=== PATIENT | male | born 1945 | race Caucasian/White ===

== ENCOUNTER 2017-09-23 14:54 | Emergency (ER) | payer MEDICARE, SELFPAY ==
[2017-09-23 14:55] VITALS: BP 155/94; PULSE 93; RESP 16; TEMP 36.5; O2SAT 98; BMI 26.2
--- NOTE | 2017-09-23 15:35 | CT_ITS ---
STUDY: CT ABDOMEN AND PELVIS WITHOUT CONTRAST REASON FOR EXAM: Male, 72 years old. Left upper quadrant pain, nausea, vomiting RADIATION DOSAGE (If Supplied By Facility): CTDIvol = ( 9.37 ) mGy, DLP = ( 475.36 ) mGycm TECHNIQUE: Transaxial images were obtained from the dome of the diaphragm to the symphysis pubis without oral contrast, and without intravenous contrast. Sagittal and coronal images were reconstructed. Individualized dose optimization techniques were used for this CT. COMPARISON: Prior study of 03/01/2013 FINDINGS: The study is limited, being performed without oral and intravenous contrast. The visualized lung bases are unremarkable. The visualized portions of the heart are within normal limits. Normal liver. Normal gallbladder and extrahepatic biliary system. Normal spleen. Normal pancreas. Normal bilateral adrenal glands. There is a nonobstructing 2 mm calculus of the lower pole of the right kidney. There is a mild left hydronephrosis and hydroureter. There is an obstructing left intraureteral calculus several CM proximal to the UVJ measuring 4 mm. There is a nonobstructing 3 mm calculus in the upper pole of the left kidney. There is left perinephric stranding. Normal visualized stomach. Normal small intestine. There is a large amount of stool in the rectal vault. The appendix is visualized and appears normal. There are calcified plaques of the abdominal aorta and common iliac arteries. Normal inferior vena cava. Normal retroperitoneum. Normal urinary bladder. The prostate is enlarged, measuring 5.8 x 4.3 x 6.5 cm. There are status post anterior abdominal wall hernia repair changes. There are diffuse degenerative changes of the visualized thoracolumbar spine. There is a grade 1 anterolisthesis of L4 relative to L3 and L5. CT/Abdomen/Pelvis without Cont IMPRESSION: 1. There is an obstructing 4 mm left intraureteral calculus several CM proximal to the UVJ with mild proximal left hydronephrosis and hydroureter. Left perinephric stranding is seen. 2. There are additional nonobstructing calculi of the left and right kidneys. 3. Enlarged prostate. 4. Degenerative changes of the visualized thoracolumbar spine. Grade 1 anterolisthesis of L4 relative to L3 and L5. Left upper quadrant pain, nausea and vomiting Electronically Signed: Wilber Torres MD at 17:40 EDT , Service support ,
--- NOTE | 2017-09-23 15:37 | ED.VISSUMM ---
- ER Visit Summary Date of Service: 09/23/17 Chief Complaint: Left flank pain History of Present Illness: The patient is a 72 M with Pap smear history of kidney stones. He is also had prior back surgery for spinal stenosis. States around 1 AM last night he got left flank pain and felt similar to his prior kidney stones. He has not had one for years. He has always been able to pass them in the past. States he was unable to get to sleep with the pain. He took a hydrocodone around 6 AM. He states that it is worst the pain was a 5 and currently is a 2 out of 10. He had dry heaves. Currently is not nauseated. He denies any dysuria. He denies any melena. He denies any fever. He denies any trauma. Physical Examination: Well appearing older male. Vital signs are stable and afebrile. He does not look septic or toxic. He is in no acute distress. Currently he states he does not need anything for pain. HEENT exam unremarkable. Lungs clear to auscultation bilaterally. Heart regular rate and rhythm no murmur. Abdomen is soft and nondistended. Normal bowel sounds no peritoneal signs. There is absolutely no reproducible abdominal tenderness. Both the right upper and right lower quadrants are unremarkable. No hernias or masses. No pulsatile mass. He is moving all 4 extremities. Neurovascular intact. Without edema. Back exam is nontender. Neurologically he is awake and alert without focal motor deficits. Test Results: CT flank without contrast shows left intraureteral calculi of 4 mm proximal to the left UVJ. With hydroureter and hydronephrosis. There is also some left renal stranding. He also has a large prostate. The CAT scan results are consistent with blood in his urine and urinalysis and his history and exam. Emergency Department Course and Treatment: Clinically the patient has a left kidney stone. Labs will be done. He does not want anything for pain or nausea at this time. Treatment Plan: Is doing well. He took another one of his hydrocodone as well in the ER. He did not want anything stronger at this time. I went over all test results with he and his significant other. He is comfortable being discharged to home. He has plenty of hydrocodone at home for pain. He will also be placed on Flomax. Given a urine strainer. He knows to return if intractable pain, fever, vomiting or feeling worse. Disposition: Discharge Impression: Left flank pain secondary to 4 mm left intraureteral kidney stone above the left UVJ. This note was generated with [employer] dictation software. It may contain incorrect words, spelling, and punctuation that were not noted in review of the chart prior to signing ED Disposition - Plan for ED Patient: Chief Complaint: Abd Pain Referrals: Lidia Costello MD [Primary Care Provider] -
[2017-09-23 16:58] VITALS: RESP 15; O2SAT 97
--- NOTE | 2017-09-23 16:59 | ED.RN ---
WITH PERMISSION FROM DR. NAJERA PT TAKING A DOSE OF HIS HOME MEDICATION.
[2017-09-23 17:02] LABS: Bacteria 0 SEEN /hpf (None Seen); Mucous, Urine 0 SEEN /hpf (<or=2+); Squamous Epithelial Cells - UA 0 SEEN /hpf (0-5)
[2017-09-23 17:04] LABS: Color, Urine Yellow (Yellow); Glucose, Dipstick Normal (Normal); Ketone-Dipstick Negative (Negative); Leukocyte Esterase-Dipstick 25 /ul (Negative); Nitrite-Dipstick Negative (Negative); Occult Blood-Urine 250 /ul (Negative); Protein-Dipstick 15 mg/dl (Negative); Specific Gravity, Urine 1.015 (1.002-1.030); Urine Bilirubin Dipstick Negative (Negative); Urine Clarity Sl. Cloudy (Clear); Urine Urobilinogen Normal (Normal); Urine pH 6.5 (5.0 - 8.0)
[2017-09-23 17:14] LABS: Red Blood Cells-Urine 10-25 SEEN /hpf (0-5); White Blood Cells 0-5 SEEN /hpf (0-5)
--- NOTE | 2017-09-23 19:30 | ED.DEP ---
ED Disposition - Plan for ED Patient: Disposition: Home or Assisted Living Chief Complaint: Abd Pain Instructions: ED Stone Renal W Colic Prescriptions: Tamsulosin HCl [Flomax] 0.4 mg PO DAILY 7 Days cap Referrals: Lidia Costello MD [Primary Care Provider] - As Needed Additional Instructions: Plenty of fluids and rest. Flomax daily. To help you pass the stone. Strain all urine looking for the past stone. Usual pain medications as needed. Plenty of fiber to prevent constipation along with stool softener and water. Return to the ER if increasing pain, fever or intractable vomiting. This is a 4 mm kidney stone that you should be able to pass.
[2017-09-23 19:39] VITALS: RESP 16
== END 2017-09-23 19:41 | disposition home or self-care (01) ==
PROVIDERS: Emergency Provider Emergency Medicine; Family Provider Internal Medicine; PCP Internal Medicine
DX: N13.2 Hydronephrosis with renal and ureteral calculous obstruction (principal); E78.00 Pure hypercholesterolemia, unspecified; Z87.442 Personal history of urinary calculi
CPT/HCPCS: 74176; 81001; 99283

== ENCOUNTER 2018-04-17 15:40 | Emergency (ER) | payer MEDICARE, SELFPAY ==
[2018-04-17 15:41] VITALS: BP 147/80; PULSE 89; RESP 18; TEMP 36.9; O2SAT 98; BMI 26.7
--- NOTE | 2018-04-17 16:55 | CT_ITS ---
STUDY: CT ABDOMEN AND PELVIS WITH CONTRAST REASON FOR EXAM: Male, 72 years old. Intermittent abdominal pain RADIATION DOSAGE (If Supplied By Facility): CTDIvol = ( 20.39 ) mGy, DLP = ( 1053.74 ) mGycm TECHNIQUE: Transaxial images were obtained from the dome of the diaphragm to the symphysis pubis without oral contrast. 100 ml of Isovue 300 contrast was administered. Sagittal and coronal images were reconstructed. Individualized dose optimization techniques were used for this CT. COMPARISON: September 23, 2017 FINDINGS: The visualized lung bases are unremarkable. The visualized portions of the heart are within normal limits. Normal liver. Normal gallbladder and extrahepatic biliary system. Normal spleen. Normal pancreas. Normal bilateral adrenal glands. Mild hydronephrosis bilaterally, left more than right. 3 mm lower pole nonobstructive stone in the left kidney. Normal visualized stomach. Normal small intestine. Normal colon. The appendix is visualized and appears normal. Calcified abdominal aorta. Normal inferior vena cava. Normal retroperitoneum. Normal urinary bladder. The prostate is 4.2 x 5.9 cm. Normal abdominal wall. Degenerative vertebral changes. Minimal spondylolisthesis at L4-5 and retrolisthesis at L3-4. CT/Abdomen/Pelvis W IV Cont ONLY IMPRESSION: Mild hydronephrosis without obstructing stone bilaterally. Nonobstructing lower pole left renal stone. Slightly prominent prostate. Electronically Signed: Johann Loera DO at 18:21 EDT Tel [phone], Service support ,
--- NOTE | 2018-04-17 17:01 | ED.DCSUM_ITS ---
- ER Visit Summary Date of Service: 04/17/18 Chief Complaint: Upper abdominal pain History of Present Illness: The patient is a 72 M history of kidney stones, hypertension, high cholesterol and enlarged prostate. Patient had prior back surgery. He has never had any abdominal surgery other than umbilical hernia with mesh. He has had intermittent abdominal pain upper for the last 3 months worse with supine positioning. He denies any nausea, vomiting, area. No melena. No weight loss. No fever. No weakness in his lower extremities. No dysuria. Physical Examination: Well-appearing older male. Vital signs are stable afebrile. He does not look septic toxic. He is in no distress. He actually walked back from the bathroom when I was in the room talking with his . H EENT exam unremarkable. Neck nontender. Lungs clear to auscultation bilaterally. Heart regular rhythm no murmur. Abdomen soft mild epigastric tenderness. No rebound, guarding or rigidity. The right upper right lower quadrant unremarkable. No Nunn sign. No McBurney's point tenderness. No si gns of obstruction. No pulsatile mass. No hernia appreciated. Patient is moving all 4 extremities. They are neurovascularly intact. Back there is no reproducible tenderness. When he goes from a sitting upright position to supine he has worsening discomfort in his abdomen. This may be secondary to an issue coming from his back and not intra-abdominal. Test Results: CBC normal. White count of 4. Hemoglobin 13. Chemistries unremarkable. Gap is 6. Creatinine 1.2. Enzymes normal. Lipase normal 117. With IV contrast showed mild bilateral hydro-but no signs of obstruction. Left renal stone. And enlarged prostate. No acute process. Read by the radiologist and reviewed by me. Emergency Department Course and Treatment: CAT scan and workup. I am not convinced this is intra-abdominal this may be coming from his lower thoracic or upper lumbar spine. Patient was offered but currently does not need anything for pain or nausea. Treatment Plan: Patient is doing well on repeat exam at 8 PM. His are comfortable being discharged home. He needs further evaluation. I do not think this is pain is from intra-abdominal pathology. It may or may not be coming from his lower thoracic or upper lumbar spine. It seems to be positional. It could also be from the abdominal wall but currently there is no signs of hernia. Disposition: Discharge Impression: Acute upper abdominal pain of uncertain etiology This note was generated with [employer] dictation software. It may contain incorrect words, spelling, and punctuation that were not noted in review of the chart prior to signing ED Disposition - Plan for ED Patient: Chief Complaint: Abd Pain Referrals: Lidia Costello MD [Primary Care Provider] -
[2018-04-17 17:31] LABS: Absolute Lymphocyte Count 1.15 X10^3/ul (0.83-4.51); Absolute Neutrophil Count 2.3 X10^3/uL (2.0-7.7); Basophil# 0.02 X10^3/uL; Basophil% 0.5 % (0-1); Eosinophil# 0.19 X10^3/uL; Eosinophils% 4.6 % (0-5); Hematocrit 41.6 % (40-54); Hemoglobin 13.8 g/dl (13.0-16.5); Lymphocyte # 1.15 X10^3/ul (4.0); Lymphocyte % 27.7 % (19-41); Mean Corp Hgb Conc 33.2 g/gl (32-36); Mean Corpuscular Hgb 29.2 pg (27.0-32.0); Mean Corpuscular Volume 87.9 fL (80-94); Mean Platelet Vol. 10.1 fl (6.2-12.0); Monocyte# 0.49 X10^3/uL; Monocyte% 11.8 % (0-10); Neutrophil % 55.4 % (47-70); Platelet Count 153 K/mm3 (150-450); RBC Distribution Width CV 13.1 % (11.6-14.6); RBC Distribution Width SD 41.9 fl (35.1-43.9); Red Blood Count 4.73 M/mm3 (4.6-6.2); White Blood Count 4.2 K/mm3 (4.4-11.0)
[2018-04-17 17:32] LABS: POSITIVE COUNT NO; POSITIVE DIFFERENTIAL NO; POSITIVE MORPHOLOGY NO
[2018-04-17 17:37] LABS: AST(SGOT) 21 U/L (15-37); Alanine Aminotransfer ALT/SGPT 28 U/L (16-61); Alkaline Phosphatase 100 U/L (45-117); Anion Gap 6 (5-15); BUN 18 mg/dL (7-18); BUN/Creat Ratio 14.1 RATIO (10-20); Bilirubin, Direct 0.16 mg/dL (0.00-0.30); Calcium,Total 9.1 mg/dL (8.5-10.1); Chloride 104 mmol/L (98-107); Creatinine, Serum 1.28 mg/dL (0.70-1.30); EST Glomerular Filtration Rate 59 mL/min (>60); Est Glom Filt Rate - Afr Amer 71 mL/min (>60); Estimated Creatinine Clearance 55.56 ml/min; Globulin 3.5 g/dL (2.2-4.2); Glucose 103 mg/dL (74-106); Lipase 117 U/L (73-393); Potassium 3.7 mmol/L (3.5-5.1); Protein, Total 7.5 g/dL (6.4-8.2); Sodium Level 139 mmol/L (136-145)
[2018-04-17 18:41] VITALS: BP 138/94; PULSE 98; RESP 17; O2SAT 96
--- NOTE | 2018-04-17 20:15 | ED.DEP ---
ED Disposition - Plan for ED Patient: Disposition: Home or Assisted Living Chief Complaint: Abd Pain Instructions: ED Abdominal Pain Unkn Cause Referrals: Lidia Costello MD [Primary Care Provider] - As soon as possible Additional Instructions: Your labs and CAT scan today were unremarkable. It is possible this pain may be coming from your back. You may discuss with your primary care physician for possible MRI of your lower thoracic and lumbar spine.
[2018-04-17 20:28] VITALS: BP 146/99; PULSE 74; RESP 20; O2SAT 99
== END 2018-04-17 20:29 | disposition home or self-care (01) ==
PROVIDERS: Emergency Provider Emergency Medicine; Family Provider Internal Medicine; PCP Internal Medicine
DX: R10.10 Upper abdominal pain, unspecified (principal); N20.0 Calculus of kidney; N40.0 Benign prostatic hyperplasia without lower urinary tract symptoms; I10 Essential (primary) hypertension; E78.00 Pure hypercholesterolemia, unspecified; Z87.442 Personal history of urinary calculi
CPT/HCPCS: 74177; 80048; 80076; 83690; 85025; 99283; J7030; Q9967; A4216

== ENCOUNTER 2022-11-05 09:08 | Emergency (ER) | payer MEDICARE, SELFPAY ==
[2022-11-05 09:09] VITALS: BP 136/104; PULSE 114; RESP 14; TEMP 36.4; O2SAT 95; BMI 28.7
--- NOTE | 2022-11-05 09:40 | EX.ED.DYSGE1 ---
HPI History of Present Illness Chief Complaint: Flank Pain Informant: patient Narrative Narrative: Patient is a 77-year-old male with history of kidney stones, hyperlipidemia and on daily aspirin therapy presenting for worsening left flank pain and worsening kidney function. Patient's been having left abdominal/back/flank pain for the past 3 to 4 days was diagnosed outpatient with kidney stone. He states he has a 9 mm and a 4 mm stone. He is not sure exactly where they are at. He has been taking [place] every 4 hours with no relief of his symptoms. He does not currently have a urologist. Patient had an outpatient CT as well as labs. He was told his kidney function was worse as well and told he needs to go to the emergency room. Patient has having nausea and dry heaves. Denies any blood in his urine but was told on the lab that there was blood microscopically. States he is having sweats but does states that with pain. No other complaints at this time. PFSH PFS Home Medications aspirin 81 mg chewable tablet 81 mg PO DAILY@0800 01/30/16 [History Last Taken Unknown] atorvastatin 20 mg tablet 20 mg PO QHS 01/30/16 [History Last Taken Unknown] cxcwepae-nme-hwaup acid 0.4 mg-lycopene 300 mcg-lutein 250 mcg tablet (Centrum Silver) 1 ea PO DAILY 01/30/16 [History Last Taken Unknown] tamsulosin 0.4 mg capsule 0.4 mg PO DAILY 7 days 09/23/17 [Rx Last Taken Unknown] escitalopram oxalate 10 mg tablet 10 mg PO DAILY 11/05/22 [History Last Taken Unknown] Allergy/AdvReac Type Severity Reaction Status Date / Time bupropion HCl Allergy Rash Verified 11/05/22 09:11 [From Wellbutrin] Social History Smoking Status: Never smoker ROS ROS ED Constitutional Constitutional ED: Reports sweats; Denies chills ENT ENT ED: Denies rhinorrhea or sore throat Cardiovascular Cardiovascular: Denies chest pain Respiratory/Chest Respiratory/Chest: Denies cough Gastrointestinal Gastrointestinal: Reports abdominal pain and nausea; Denies constipation or diarrhea Genitourinary Genitourinary ED: Denies dysuria or hematuria Musculoskeletal Musculoskeletal: Denies arthralgias or myalgias Integumentary Denies rash Neurologic Neurologic: Denies headache(s) Hematologic/Lymphatic Hematologic/Lymphatic: Denies easy bleeding or easy bruising EXAM Physical Exam Const Vital Signs: 11/05/22 09:09 11/05/22 11:09 Temperature 97.6 F L Temperature Source Temporal Pulse Rate 114 H Respiratory Rate 14 18 Blood Pressure 136/104 H Blood Pressure Mean 114 Pulse Ox 95 Oxygen Delivery Method Room Air Positive well nourished and well developed General Appearance ED: well developed and NAD HEENT Reports moist mucous membranes Eyes PERRL Neck supple Chest Wall inspection of chest normal and palpation of chest normal Resp normal respiratory effort and clear to auscultation bilaterally Cardio regular rate, regular rhythm and no murmurs GI normal to inspection, nondistended, normoactive bowel sounds and non-tender Palpation: Negative for guarding or rebound tenderness present Back/Spine no CVA tenderness Extremity normal to inspection Neuro oriented x3 Sensorium / Orientation: alert Motor Exam: Negative for general weakness Psych mental status grossly normal Skin no rashes or lesions noted MDM MDM MDM Narrative Medical decision making narrative: Patient evaluated for intractable pain associated kidney stone. I will be given morphine, Zofran and IV fluids. He reports that his kidney function was worsening per conversation with PCP office. Outpatient records individually reviewed and shows creatinine of 2.45 yesterday. In addition patient had a sodium of 134, BUN of 34 and a glucose of 141. Remainder of labs were normal. CT from yesterday shows moderate left-sided hydronephrosis with a 9 mm calculus of the proximal left ureter and a 4 mm calculus at the lower pole of the left kidney. CMP from 06/07/2022 showed a creatinine of 1.16. Normal CBC today. Sodium is now 131 and creatinine is 2.36. Patient is accepted to [facility] by Dr. Ba. Patient has improvement of pain. While waiting for transport he does ask for more pain medicine. Is given additional 4 mg of IV morphine. Kept n.p.o. at this time. Lab Data Attestation: I reviewed the patient's lab results. Labs: Laboratory Results - last 24 hr 11/05/22 11/05/22 11/05/22 09:45 09:45 11:24 WBC 8.3 RBC 4.80 Hgb 14.3 Hct 42.4 MCV 88.3 MCH 29.8 MCHC 33.7 RDW Std Deviation 40.5 RDW Coeff of Marianne 12.5 Plt Count 147 L MPV 9.9 Immature Gran % (Auto) 0.500 Neut % (Auto) 80.6 H Lymph % (Auto) 7.0 L Avery % (Auto) 11.3 H Eos % (Auto) 0.4 Baso % (Auto) 0.2 Absolute Neuts (auto) 6.7 Absolute Lymphs (auto) 0.58 L Nucleated RBC % 0 Differential Comment COMMENT Sodium 131 L Potassium 4.2 Chloride 102 Carbon Dioxide 23.0 Anion Gap 6 BUN 31 H Creatinine 2.36 H Estim Creat Clear Calc 27.07 Est GFR (MDRD) Af Amer 35 L Est GFR (MDRD) Non-Af 29 L BUN/Creatinine Ratio 13.1 Glucose 144 H Calcium 9.3 Urine Color Yellow Urine Clarity Clear Urine pH 5.0 Ur Specific [place] 1.020 Urine Protein Negative Urine Glucose (UA) Normal Urine Ketones 15 H Urine Occult Blood Negative Urine Nitrite Negative Urine Bilirubin Negative Urine Urobilinogen Normal Ur Leukocyte Esterase Negative Urine RBC 0 SEEN Urine WBC 0 SEEN Ur Squamous Epith Cells 0-5 SEEN Urine Bacteria 0 SEEN Urine Mucus 0 SEEN Discharge Plan Triage Chief Complaint: Flank Pain ED Provider: Yessica Silva Dx/Rx/DC Orders Clinical Impression: VICKEY (acute kidney injury), Hydroureter, left, Renal colic on left side, Ureterolithiasis Prescriptions: No Action atorvastatin 20 MG tablet 20 mg PO QHS Centrum Silver 1 EACH tablet 1 ea PO DAILY aspirin 81 MG tablet,chewable 81 mg PO DAILY@0800 tamsulosin 0.4 MG capsule 0.4 mg PO DAILY 7 Days 0RF escitalopram oxalate 10 mg tablet 10 mg PO DAILY Label Comments: TAKE 1 TABLET BY MOUTH EVERY DAY Primary Care Provider: Lidia Costello Referrals: Lidia Costello MD [Primary Care Provider] - Disposition Disposition: Acute Care Hospital Discharge Location: [facility] Discharge Date/Time: 11/05/22 13:37
[2022-11-05 09:58] LABS: Absolute Lymphocyte Count 0.58 X10^3/uL (0.83-4.51); Absolute Neutrophil Count 6.7 X10^3/uL (2.0-7.7); Basophil# 0.02 X10^3/uL; Basophil% 0.2 % (0-1); Eosinophil# 0.03 X10^3/uL; Eosinophils% 0.4 % (0-5); Hematocrit 42.4 % (40-54); Hemoglobin 14.3 g/dL (13.0-16.5); Lymphocyte # 0.58 X10^3/ul (0.83-4.51); Mean Corp Hgb Conc 33.7 g/dL (32-36); Mean Corpuscular Hgb 29.8 pg (27.0-32.0); Mean Corpuscular Volume 88.3 fL (80-94); Mean Platelet Vol. 9.9 fl (6.2-12.0); Monocyte# 0.94 X10^3/uL; Monocyte% 11.3 % (0-10); NRBC Flagged by Analyzer 0 % (0-5); Neutrophil % 80.6 % (47-70); POSITIVE DIFFERENTIAL YES; Platelet Count 147 K/mm3 (150-450); RBC Distribution Width CV 12.5 % (11.6-14.6); RBC Distribution Width SD 40.5 fl (35.1-43.9); White Blood Count 8.3 K/mm3 (4.4-11.0)
[2022-11-05] MEDS: 0.9% Normal Saline 1,000 ML 250 ML IV (09:59)
[2022-11-05] MEDS: Morphine 4 MG/ML Syringe IV ×2 (09:59→13:13)
[2022-11-05] MEDS: Ondansetron 4 MG/2 ML Vial IV (09:59)
[2022-11-05 10:02] LABS: Differential Indicated SCAN CRITERIA MET
[2022-11-05 10:10] LABS: Anion Gap 6 (5-15); BUN 31 mg/dL (7-18); BUN/Creat Ratio 13.1 RATIO (10-20); Calcium,Total 9.3 mg/dL (8.5-10.1); Chloride 102 mmol/L (98-107); Creatinine, Serum 2.36 mg/dL (0.70-1.30); EST Glomerular Filtration Rate 29 mL/min (>60); Est Glom Filt Rate - Afr Amer 35 mL/min (>60); Estimated Creatinine Clearance 27.07 ml/min; Glucose 144 mg/dL (74-106); Potassium 4.2 mmol/L (3.5-5.1); Sodium Level 131 mmol/L (136-145)
--- NOTE | 2022-11-05 10:40 | NURSING ---
[facility] CALLED WITH ACCEPTANCE-- DR BOTELLO ( UROLOGY) -- ER TO ER-- [id number]-- CALLED [facility] TO SET UP TRANSPORT-- ETA GIVEN [id number]
[2022-11-05 11:09] VITALS: RESP 18
[2022-11-05 11:32] LABS: Bacteria 0 SEEN /hpf (None Seen); Mucous, Urine 0 SEEN /hpf (<or=2+); Red Blood Cells-Urine 0 SEEN /hpf (0-5); White Blood Cells 0 SEEN /hpf (0-5)
[2022-11-05 11:43] LABS: Color, Urine Yellow (Yellow); Glucose, Dipstick Normal (Normal); Ketone-Dipstick 15 mg/dl (Negative); Leukocyte Esterase-Dipstick Negative /ul (Negative); Nitrite-Dipstick Negative (Negative); Occult Blood-Urine Negative /ul (Negative); Protein-Dipstick Negative (Negative); Urine Bilirubin Dipstick Negative (Negative); Urine Clarity Clear (Clear); Urine Urobilinogen Normal (Normal)
[2022-11-05 11:49] LABS: Squamous Epithelial Cells - UA 0-5 SEEN /hpf (0-5)
== END 2022-11-05 13:37 | disposition short-term general hospital (02) ==
PROVIDERS: Emergency Provider Emergency Medicine; PCP Internal Medicine; Visit Provider Emergency Medicine
DX: N17.9 Acute kidney failure, unspecified (principal); N13.4 Hydroureter; N23 Unspecified renal colic; N13.2 Hydronephrosis with renal and ureteral calculous obstruction; E78.5 Hyperlipidemia, unspecified; Z79.82 Long term (current) use of aspirin; Z79.899 Other long term (current) drug therapy
CPT/HCPCS: 80048; 81001; 85025; 96361; 96374; 96375; 96376; 99284; J7030; A4216; J2405

== ENCOUNTER 2022-11-07 22:35 | Emergency (ER) | payer MEDICARE, SELFPAY ==
[2022-11-07 22:36] VITALS: BP 168/102; PULSE 100; RESP 20; TEMP 36.4; O2SAT 98; BMI 30.8
--- NOTE | 2022-11-07 22:48 | EX.ED.DYSGE1 ---
HPI History of Present Illness Chief Complaint: Complaint Informant: patient Onset/Context/Timing Onset: Hours (3) Context: Gradual Onset Timing: Continuous Quality: pressure Location: suprapubic Current Severity: Severe Maximum Severity: Severe Worsened by: nothing Relieved by: nothing, cannot urinate Narrative Narrative: Patient was recently transferred to [facility] where he was an inpatient for couple days due to a 9 mm obstructing left ureteral stone and acute kidney injury. He was stented, and is due to have definitive laser surgery to break up the stone in about 2 weeks. He was having trouble urinating while in the hospital, he states at 1 point they put a Gregorio in but then he took it out and they were doing straight catheterization, he urinated a little on his own tonight, and they discharged him home about 3 hours ago. He states since then, he has felt the increasing need to urinate, but he cannot urinate and is asking for catheterization for relief. He was having some pain from the stent before this, but it was controlled and he is prescribed analgesics that he is picking up in the morning. He denies any nausea, vomiting, fevers right now, pain in his back right now. [facility] Medical History (Updated 11/07/22 @ 22:[address] Matheus Villar MD) Kidney stones Ureteral stent present Home Medications aspirin 81 mg chewable tablet 81 mg PO DAILY@0800 01/30/16 [History Last Taken Unknown] atorvastatin 20 mg tablet 20 mg PO QHS 01/30/16 [History Last Taken Unknown] usbyyius-qyd-slytw acid 0.4 mg-lycopene 300 mcg-lutein 250 mcg tablet (Centrum Silver) 1 ea PO DAILY 01/30/16 [History Last Taken Unknown] tamsulosin 0.4 mg capsule 0.4 mg PO DAILY 7 days 09/23/17 [Rx Last Taken Unknown] escitalopram oxalate 10 mg tablet 10 mg PO DAILY 11/05/22 [History Last Taken Unknown] Allergy/AdvReac Type Severity Reaction Status Date / Time bupropion HCl Allergy Rash Verified 11/07/22 22:38 [From Wellbutrin] Social History Smoking Status: Never smoker ROS ROS ED Constitutional Constitutional ED: Denies chills or fever(s) Eyes Eyes: Denies change in vision or diplopia ENT ENT ED: Denies rhinorrhea or sore throat Cardiovascular Cardiovascular: Denies chest pain or palpitations Respiratory/Chest Respiratory/Chest: Denies cough or dyspnea Gastrointestinal Gastrointestinal: Reports abdominal pain; Denies diarrhea, nausea or vomiting Genitourinary Genitourinary ED: Reports as per HPI and difficulty urinating; Denies dysuria or hematuria Musculoskeletal Musculoskeletal: Denies back pain or neck pain Integumentary Denies abscess or rash Neurologic Neurologic: Denies headache(s), paresthesias or weakness Psychiatric Psychiatric: Denies anxiety or suicidal thoughts EXAM Physical Exam Const Vital Signs: 11/07/22 22:36 Temperature 97.5 F L Temperature Source Temporal Pulse Rate 100 Respiratory Rate 20 H Blood Pressure 168/102 H Blood Pressure Mean 124 Pulse Ox 98 Oxygen Delivery Method Room Air Positive well nourished and well developed General Appearance ED: well developed and NAD HEENT Reports moist mucous membranes normocephalic and atraumatic Eyes PERRL and EOMs intact bilaterally Neck full ROM and supple Resp normal respiratory effort and clear to auscultation bilaterally Cardio regular rate, regular rhythm and no murmurs GI non-distended GI Narrative: Suprapubic tenderness moderate, no guarding or rebound tenderness. No other areas of tenderness. No pulsatile mass. Auscultation: normoactive bowel sounds Palpation: soft Back/Spine no CVA tenderness General Back: other FROM Extremity normal to inspection General Extremety ED: Negative for edema, pulses abnormal or tenderness General Extremity: Negative for edema or pulses abnormal Neuro oriented x3, CN's II-XII intact bilaterally and no sensory deficits noted Sensorium / Orientation: awake and alert Motor Exam: strength 5/5 throughout Psych Psych Narrative: A little anxious Skin no rashes or lesions noted and no wounds MDM MDM MDM Narrative Medical decision making narrative: Patient was asking for us to straight catheterize him so that he can make it through the night. He presents at around 10:45 PM, and in my opinion he would be better off with a Gregorio catheter if this has been a recurrent issue for him in the last couple days. We discussed the pros and cons, he is amenable to a Gregorio catheter. Therefore I had nursing place this after Uro-Jet pretreatment, about a liter came out and the patient felt much better. No blood or sediment. I did discuss with the patient that he may leave it in for 2 weeks until he sees urology, or he may either return to the ER to have it removed, or he can deflate the balloon and remove it at home if he so chose. He states he would prefer to leave it in for the next 2 weeks. I advised him to discuss with his urologist after the weekend so that they are on the same page. Since the patient was just discharged from acute care several hours ago, I do not feel we need to repeat labs or urinalysis/imaging. Patient is in agreement. Discharge Plan Triage Chief Complaint: Complaint ED Provider: Matheus Villar Dx/Rx/DC Orders Clinical Impression: Acute urinary retention Instructions: ED Gregorio Catheter, Care, ED Urinary Retention, Male Prescriptions: No Action atorvastatin 20 MG tablet 20 mg PO QHS Centrum Silver 1 EACH tablet 1 ea PO DAILY aspirin 81 MG tablet,chewable 81 mg PO DAILY@0800 tamsulosin 0.4 MG capsule 0.4 mg PO DAILY 7 Days 0RF escitalopram oxalate 10 mg tablet 10 mg PO DAILY Label Comments: TAKE 1 TABLET BY MOUTH EVERY DAY Primary Care Provider: Lidia Costello Referrals: Urologist, your [Other] (Call tomorrow and discussed with your urologist, make them aware of the fact that you have an indwelling Gregorio catheter, and confirm that they are okay with you keeping it in until you see them in 2 weeks.) Lidia Costello MD [Primary Care Provider] - Disposition Disposition: Home, Self Care
[2022-11-07] MEDS: Lidocaine Jelly 2% 20 ML Syringe (URO-JET) 1 APPLIC TOPICAL (22:52)
== END 2022-11-08 00:28 | disposition home or self-care (01) ==
PROVIDERS: Emergency Provider Emergency Medicine; PCP Internal Medicine; Visit Provider Emergency Medicine
DX: R33.9 Retention of urine, unspecified (principal); Z87.442 Personal history of urinary calculi; Z79.82 Long term (current) use of aspirin
CPT/HCPCS: 51702; 99283

== ENCOUNTER 2022-11-08 15:54 | Emergency (ER) | payer MEDICARE, SELFPAY ==
[2022-11-08 15:55] VITALS: BP 132/100; PULSE 106; RESP 18; TEMP 36; O2SAT 96; BMI 64.0
--- NOTE | 2022-11-08 16:07 | EX.ED.GUMALE ---
HPI History of Present Illness Chief Complaint: Complaint Informant: patient Narrative Narrative: Patient presents about 1600 out of concern about a problem with his catheter that was placed here last night for urinary retention. He has a 9 mm left ureteral kidney stone and had a ureteral stent placed at [facility] and was discharged yesterday, subsequently had urinary retention seen here by myself we placed a catheter and he went home. He states he woke up this morning and the leg bag was full, he emptied it, and there has been a very small amount of bloody urine output, the blood is new, in the bag for the entire day and he feels like he has urinary retention again with discomfort in the suprapubic area. No fevers, chills, back pain. He states he has had some leakage of urine that has been mildly bloody from around the catheter from the penis, and a small amount of urine came out of the port that were used to inflate the balloon. As we talked more, he agrees it was probably water, as it was not bloody and the urine in the bag is bloody. He thought the balloon ruptured, but the catheter has not come out. [facility] Medical History Kidney stones Ureteral stent present Home Medications aspirin 81 mg chewable tablet 81 mg PO DAILY@0800 01/30/16 [History Last Taken Unknown] atorvastatin 20 mg tablet 20 mg PO QHS 01/30/16 [History Last Taken Unknown] oeyzqacr-fmw-ywmqd acid 0.4 mg-lycopene 300 mcg-lutein 250 mcg tablet (Centrum Silver) 1 ea PO DAILY 01/30/16 [History Last Taken Unknown] tamsulosin 0.4 mg capsule 0.4 mg PO DAILY 7 days 09/23/17 [Rx Last Taken Unknown] escitalopram oxalate 10 mg tablet 10 mg PO DAILY 11/05/22 [History Last Taken Unknown] Allergy/AdvReac Type Severity Reaction Status Date / Time bupropion HCl Allergy Rash Verified 11/08/22 15:54 [From Wellbutrin] Social History Smoking Status: Never smoker ROS ROS ED Constitutional Constitutional ED: Denies chills or fever(s) Gastrointestinal Gastrointestinal: Reports as per HPI and abdominal pain; Denies nausea or vomiting Genitourinary Genitourinary ED: Reports as per HPI and hematuria Musculoskeletal Musculoskeletal: Denies back pain EXAM Physical Exam Const Vital Signs: 11/08/22 15:55 Temperature 96.8 F L Temperature Source Temporal Pulse Rate 106 H Respiratory Rate 18 Blood Pressure 132/100 H Blood Pressure Mean 110 Pulse Ox 96 Oxygen Delivery Method Room Air Positive well nourished and well developed General Appearance ED: well developed and NAD HEENT Reports moist mucous membranes Eyes PERRL and EOMs intact bilaterally GI non-distended GI Narrative: Suprapubic tenderness. Auscultation: normoactive bowel sounds no CVA tenderness Narrative: Catheter in place, balloon appears competent, when I applied gentle distraction pressure on the catheter, there is resistance and it does not simply come out of the penis. There is no leakage around the catheter at this time. There is a scant amount of mildly bloody urine in the leg bag with no clots. There is no discharge from the balloon port at this time. Neuro oriented x3, CN's II-XII intact bilaterally, moves all extremities, no focal motor deficits and no sensory deficits noted Psych mental status grossly normal Skin Lesions: no lesions Rashes: no rashes MDM MDM MDM Narrative Medical decision making narrative: One of our techs BladderScanned the patient and there is 350 mL of urine or so registering in the patient's bladder consistent with urinary retention. I had nursing attempt to irrigate the catheter initially, reassuring the patient that the balloon is likely intact and leaked a little bit of the fluid due to the pressure in his bladder from his urinary retention which is more likely caused by a blood clot. Irrigation was able to be placed in the bladder but not able to be removed. Therefore the catheter was changed out for a larger 1 suspecting a blood clot present. Nursing placed a 22 Gren[place], a large amount of urine returned, some of which went into the bed, and almost 600 cc extra that was captured in the Gregorio bag. Patient feels much better. The urine is no longer bloody, stable for discharge. Same instructions as before. Discharge Plan Triage Chief Complaint: Complaint ED Provider: Matheus Villar Dx/Rx/DC Orders Clinical Impression: Acute urinary retention, Hematuria, Malfunction of Gregorio catheter Instructions: ED Gregorio Catheter, Care Prescriptions: No Action atorvastatin 20 MG tablet 20 mg PO QHS Centrum Silver 1 EACH tablet 1 ea PO DAILY aspirin 81 MG tablet,chewable 81 mg PO DAILY@0800 tamsulosin 0.4 MG capsule 0.4 mg PO DAILY 7 Days 0RF escitalopram oxalate 10 mg tablet 10 mg PO DAILY Label Comments: TAKE 1 TABLET BY MOUTH EVERY DAY Primary Care Provider: Lidia Costello Referrals: urologist, your [Other] (as previously directed) Lidia Costello MD [Primary Care Provider] - Disposition Disposition: Home, Self Care
[2022-11-08 17:56] VITALS: BP 128/88; PULSE 99; RESP 18; O2SAT 97
== END 2022-11-08 17:57 | disposition home or self-care (01) ==
PROVIDERS: Emergency Provider Emergency Medicine; PCP Internal Medicine; Visit Provider Emergency Medicine
DX: R31.9 Hematuria, unspecified (principal); T83.011A Breakdown (mechanical) of indwelling urethral catheter, initial encounter; R33.9 Retention of urine, unspecified; Z87.442 Personal history of urinary calculi
CPT/HCPCS: 51702; 99284

== ENCOUNTER 2022-11-30 17:33 | Emergency (ER) | payer MEDICARE, SELFPAY ==
[2022-11-30 17:34] VITALS: BP 121/69; PULSE 19; RESP 16; TEMP 36.3; O2SAT 95; BMI 26.9
--- NOTE | 2022-11-30 18:56 | EX.ED.GUMALE ---
HPI History of Present Illness Chief Complaint: Gregorio C/O Informant: patient and spouse/S.O. Narrative Narrative: Patient presents with some leaking around his Gregorio at the penis. The end of October this patient was diagnosed with a large 9 mm stone on the left side renal collecting system. He had been seen up at [facility]. No procedure was done at the time. He was sent home. He then came in and had a Gregorio placed as he could not urinate. This was switched out about a week ago. This catheter has been in for about 20 days now. He just saw [facility] urologist this afternoon. This was to arrange follow-up care. They are going to either do lithotripsy or some procedure to get the stone out. He does have a urinary stent in place. They took a sample of his urine but they did not manipulate the Gregorio at all. He then got in his car and drove home about an hour or so drive. He noticed as he drove home he had some leakage of some urine around the catheter at the tip of his penis. He has no pain at all. He has not seen blood now. Although in the past he has seen blood. He was on aspirin but stopped this yesterday. He states now urine seems to be going into the Gregorio bag normally and its not leaking around the penis. He is wondering if this may have been positional the way he was sitting in the car because it only occurred when he was driving. He does not feel sick at all. [facility] Medical History (Updated 11/30/22 @ 20:[address] Aleks Blum MD) Depression High cholesterol Kidney stones Ureteral stent present Home Medications atorvastatin 20 mg tablet 20 mg PO QHS 01/30/16 [History Last Taken Unknown] kzscjwdo-vqu-wuypk acid 0.4 mg-lycopene 300 mcg-lutein 250 mcg tablet (Centrum Silver) 1 ea PO DAILY 01/30/16 [History Last Taken Unknown] tamsulosin 0.4 mg capsule 0.4 mg PO DAILY 7 days 09/23/17 [Rx Last Taken Unknown] escitalopram oxalate 10 mg tablet 10 mg PO DAILY 11/05/22 [History Last Taken Unknown] Allergy/AdvReac Type Severity Reaction Status Date / Time bupropion HCl Allergy Rash Verified 11/30/22 17:36 [From Wellbutrin] Surgical History (Updated 11/30/22 @ 19:19 by Kitty Jonas) Previous back surgery Social History Smoking Status: Never smoker ROS ROS ED ROS Narrative A complete review of systems was performed and is negative except as documented in the history of present illness. Some specific details below. Constitutional: No recent fevers or chills. EYE: No visual complaints or pain. ENT: No difficulty swallowing. No swelling. No pain. CV: No chest pain or palpitations. Respiratory: No dyspnea. No hemoptysis. No difficulty taking breaths. GI: No pain nausea or vomiting. : See history of present illness. Symptoms seem to have resolved now. Musculoskeletal: No recent trauma. No pains. Skin: No rash. Nondiaphoretic. Neuro: No weakness or numbness. Endocrine: No polyuria or polydipsia. EXAM Physical Exam Narrative Exam Narrative: CONSTITUTIONAL: Patient is nontoxic in appearance. The patient looks comfortable. HEENT: No notable trauma. Mucous membranes moist. EYES: No conjunctival injection. CARDIOVASCULAR: Regular rate. Regular rhythm. No notable murmur. No JVD. Vitals record pulse is 19 but it is approximately 80 on my exam. RESPIRATORY: No respiratory distress. Breathing is unlabored. No wheezes. No rhonchi. No rales. No pain with a deep breath. GASTROINTESTINAL: Not distended. Bowel sounds are normal. No tenderness. No guarding. No rebound. No palpable mass. No bruit. Patient's bladder does not feel enlarged and he does not feel as though he is distended or backed up. GENITOURINARY: No tenderness or fullness is felt over the bladder. No CVA tenderness. Catheter is in place. The tip of the penis looks clean and intact. There is no breakdown. No discharge. No bleeding. There is no leakage. There is 100 or so cc of urine in the bag. It is mildly darker yellow but does not look bloody or infected. MUSCULOSKELETAL: Atraumatic. NEUROLOGICAL: Patient is alert and appropriate. No focal deficit noted. SKIN: No noted rashes. No diaphoresis. PSYCHIATRIC: Patient is calm. Mood is appropriate. Const Vital Signs: 11/30/22 17:34 Temperature 97.4 F L Temperature Source Temporal Pulse Rate 19 L Respiratory Rate 16 Blood Pressure 121/69 H Blood Pressure Mean 86 Pulse Ox 95 Oxygen Delivery Method Room Air MDM MDM MDM Narrative Medical decision making narrative: Patient irrigated without difficulty. Fluid went in and out easily. He wants to go home. The Gregorio is acting normally. We taught his how to provide irrigation if needed. We discussed reasons to return. Discharge Plan Triage Chief Complaint: Gregorio C/O ED Provider: Aleks Blum Dx/Rx/DC Orders Clinical Impression: Complication of Gregorio catheter Instructions: ED Gregorio Catheter, Care Prescriptions: No Action atorvastatin 20 MG tablet 20 mg PO QHS Centrum Silver 1 EACH tablet 1 ea PO DAILY tamsulosin 0.4 MG capsule 0.4 mg PO DAILY 7 Days 0RF escitalopram oxalate 10 mg tablet 10 mg PO DAILY Label Comments: TAKE 1 TABLET BY MOUTH EVERY DAY Primary Care Provider: Lidia Costello Referrals: Lidia Costello MD [Primary Care Provider] - Activity Restrictions/Additional Instructions: Follow-up with your urologist as scheduled Disposition Disposition: Home, Self Care
[2022-11-30 20:12] VITALS: BP 118/70; PULSE 68; RESP 16; O2SAT 97
== END 2022-11-30 20:13 | disposition home or self-care (01) ==
PROVIDERS: Emergency Provider Emergency Medicine; PCP Internal Medicine; Visit Provider Emergency Medicine
DX: T83.091A Other mechanical complication of indwelling urethral catheter, initial encounter (principal); E78.00 Pure hypercholesterolemia, unspecified; Z79.899 Other long term (current) drug therapy; Z96.0 Presence of urogenital implants; F32.A Depression, unspecified
CPT/HCPCS: 99282

== ENCOUNTER 2023-01-17 11:48 | Emergency (ER) | payer MEDICARE, SELFPAY ==
[2023-01-17 11:49] VITALS: BP 121/84; PULSE 100; RESP 15; TEMP 36.2; O2SAT 96; BMI 26.9
--- NOTE | 2023-01-17 12:23 | EKG12_ITS ---
Test Reason : HYPOTENSION Blood Pressure : / mmHG Vent. Rate : 080 BPM Atrial Rate : 080 BPM P-R Int : 178 ms QRS Dur : 078 ms QT Int : 356 ms P-R-T Axes : 025 -32 -16 degrees QTc Int : 410 ms Normal sinus rhythm Left axis deviation Abnormal ECG Confirmed by EMILY GIBBS, ERIKA ([id number]), assignment desk editor SANDOR RIGGINS ([id number]) on 01/19/2023 10:19:51 AM Referred By: Confirmed By:ERIKA DIAZ MD
--- NOTE | 2023-01-17 12:25 | EX.ED.DYSGE1 ---
HPI History of Present Illness Chief Complaint: Hypotension Informant: patient and spouse/S.O. Narrative Narrative: Patient was seen cardiology at [facility] today for a follow-up visit, he states while he was there his blood pressure was low in the 90s, his heart was fast, he has an indwelling Gregorio catheter because of enlarged prostate and urinary retention that has been present for the last 10 weeks, changed 2 weeks ago, and there was concern that he was septic so he was referred to the ER. This is per the patient and his . He states for the past 2 weeks or so he has been having episodes where he feels lightheaded, heart feels like it is racing, and he feels generally weak. The symptoms all resolved together. He has had a minor cough nonproductive no dyspnea, no chest discomfort, with or without the symptoms, he has chronic dyspnea with exertion that is no worse lately. No edema in his legs or orthopnea or PND. He states he has no known history of any heart problems, and he cannot remember why he even sees a microgrinder operator. He states they did do an EKG in the office, they were going to fax over some papers, and he was told that the EKG was normal and that this is not his heart. [facility] Medical History Depression High cholesterol Kidney stones Ureteral stent present Home Medications atorvastatin 20 mg tablet 20 mg PO QHS 01/30/16 [History Last Taken Unknown] nwxfvviy-gtz-dhbme acid 0.4 mg-lycopene 300 mcg-lutein 250 mcg tablet (Centrum Silver) 1 ea PO DAILY 01/30/16 [History Last Taken Unknown] tamsulosin 0.4 mg capsule 0.4 mg PO DAILY 7 days 09/23/17 [Rx Last Taken Unknown] escitalopram oxalate 10 mg tablet 10 mg PO DAILY 11/05/22 [History Last Taken Unknown] cephalexin 500 mg capsule 500 mg PO Q6 5 days #20 CAPSULES 01/17/23 [Rx Last Taken Unknown] Allergy/AdvReac Type Severity Reaction Status Date / Time bupropion HCl Allergy Rash Verified 01/17/23 11:50 [From Wellbutrin] Surgical History (Updated 01/17/23 @ 11:53 by Juanita Harris) Hx of umbilical hernia repair Previous back surgery Social History Smoking Status: Never smoker ROS ROS ED Constitutional Constitutional ED: Reports as per HPI and weakness; Denies chills or fever(s) Eyes Eyes: Denies change in vision or diplopia ENT ENT ED: Denies rhinorrhea or sore throat Cardiovascular Cardiovascular: Reports palpitations and racing heartbeat; Denies chest pain or orthopnea Respiratory/Chest Respiratory/Chest: Reports cough and dyspnea on exertion; Denies dyspnea or orthopnea Gastrointestinal Gastrointestinal: Denies abdominal pain, diarrhea, nausea or vomiting Genitourinary Genitourinary ED: Denies dysuria or hematuria Musculoskeletal Musculoskeletal: Denies back pain or neck pain Integumentary Denies abscess or rash Neurologic Neurologic: Denies headache(s), paresthesias or weakness Psychiatric Psychiatric: Denies anxiety or suicidal thoughts EXAM Physical Exam Const Vital Signs: 01/17/23 11:49 01/17/23 12:23 01/17/23 13:29 Temperature 97.2 F L Temperature Source Temporal Pulse Rate 100 Respiratory Rate 15 Respiratory Effort Normal Non-Labored Respiratory Pattern Normal Blood Pressure 121/84 H Blood Pressure Mean 96 Pulse Ox 96 Oxygen Delivery Method Room Air Room Air Positive well nourished and well developed Constitutional Narrative: Well-appearing conversive in full senses no distress General Appearance ED: well developed and NAD HEENT Reports moist mucous membranes normocephalic and atraumatic Eyes PERRL and EOMs intact bilaterally Neck full ROM, no lymphadenopathy, supple and no JVD Resp normal respiratory effort and clear to auscultation bilaterally Cardio regular rate, regular rhythm and no murmurs Rate: Negative for tachycardic GI non-tender and non-distended Auscultation: normoactive bowel sounds Palpation: soft Narrative: Gregorio catheter in place, with transparent yellow nonbloody urine. Back/Spine no CVA tenderness General Back: other FROM Extremity normal to inspection General Extremety ED: Negative for edema, pulses abnormal or tenderness General Extremity: Negative for edema or pulses abnormal Neuro oriented x3, CN's II-XII intact bilaterally and no sensory deficits noted Sensorium / Orientation: awake and alert Motor Exam: strength 5/5 throughout Psych mental status grossly normal Skin no rashes or lesions noted and no wounds MDM MDM MDM Narrative Medical decision making narrative: Obtained a septic work-up in this patient. It is basically normal except his urinalysis does show indicators for infection. There is pyuria. To differentiate this from colonization a culture will be sent, and I will treat him under the circumstances with an empiric antibiotic. He did not have any recurrent symptoms while he was here in the emergency department. I reviewed old records that were sent to me from [facility], including an EKG, it looks identical to ours with a leftward axis, no electrical block, at the time his heart rate was in the 90s for them and for us it is in the 80s. There are no P wave inversions to suggest an ectopic atrial tachycardia but I would argue that there EKG was probably not done while the patient had a racing heartbeat. The rest of the records that were sent basically showed his medication list. Two-view chest x-ray that we performed here my interpretation negative for any acute, no cardiomegaly mediastinal widening pneumothorax or infiltrate. His vital signs are normal now on reevaluation pulse is 100 blood pressure 121/84, he has been up to the 140s as well, no episodes of hypotension or tachycardia here. Ectopic atrial tachycardia is in the differential diagnosis here, as is ventricular or supraventricular ectopy, and other causes of a supraventricular tachycardia. I am having our technicians here place a Holter monitor and I will try to have the results sent to his microgrinder operator rather than hours since he follows with [facility]. At this time overall the patient is stable to be discharged home. Discussed follow-up he is comfortable with that plan as is his . History & Record Review Discussion w/independent historian: Patient and Significant other Additional record(s) reviewed:: Prior outpatient record Lab Data Attestation: I reviewed the patient's lab results. Labs: Laboratory Results - last 24 hr 01/17/23 01/17/23 12:25 13:36 WBC 8.3 RBC 4.71 Hgb 13.8 Hct 42.6 MCV 90.4 MCH 29.3 MCHC 32.4 RDW Std Deviation 42.0 RDW Coeff of Marianne 12.9 Plt Count 236 MPV 10.0 Immature Gran % (Auto) 0.400 Neut % (Auto) 66.6 Lymph % (Auto) 17.3 L Morgan % (Auto) 9.6 Eos % (Auto) 5.4 H Baso % (Auto) 0.7 Absolute Neuts (auto) 5.5 Absolute Lymphs (auto) 1.43 Nucleated RBC % 0 PT 13.2 INR 1.0 APTT 28.9 Sodium 136 Potassium 4.1 Chloride 106 Carbon Dioxide 27.0 Anion Gap 3 L BUN 22 H Creatinine 1.54 H Estim Creat Clear Calc 41.48 Est GFR (MDRD) Af Amer 57 L Est GFR (MDRD) Non-Af 47 L BUN/Creatinine Ratio 14.3 Glucose 123 H Lactic Acid 1.3 Calcium 9.4 Total Bilirubin 0.60 AST 16 ALT 25 Alkaline Phosphatase 116 Troponin I High Sens 5 B-Natriuretic Peptide 9.1 Total Protein 6.9 Albumin 3.3 Globulin 3.6 Albumin/Globulin Ratio 0.9 Urine Color Yellow Urine Clarity Sl. Cloudy Urine pH 6.0 Ur Specific [place] 1.020 Urine Protein 100 H Urine Glucose (UA) Normal Urine Ketones Negative Urine Occult Blood 250 H Urine Nitrite Positive H Urine Bilirubin Negative Urine Urobilinogen Normal Ur Leukocyte Esterase 500 H Urine RBC 0-5 SEEN Urine WBC 25-50 SEEN Ur Squamous Epith Cells 0-5 SEEN Urine Bacteria 0 SEEN Urine Mucus 0 SEEN Radiography Diagnostic Testing: Clinical Impression(s) from Imaging Studies Chest X-Ray 01/17/23 12:36 IMPRESSION: No acute abnormality is seen. Electronically Signed: Kai Albert MD at 13:21 EDT , Rhythm Strip Rhythm Strip: Sinus Rhythm Rate: 90 Ectopy: None EKG Initial EKG: Attestation: I personally reviewed and interpreted this EKG as follows: Interpretation: Sinus Rhythm, No Acute Injury Pattern and LAFB Prior EKG tracings: available for review Prior: Unchanged Discharge Plan Triage Chief Complaint: Hypotension ED Provider: Matheus Villar Dx/Rx/DC Orders Clinical Impression: Palpitations, Acute UTI Instructions: Urinary Tract Infections in Men, ED Palpitations Prescriptions: New cephalexin [cephalexin] 500 mg capsule 500 mg PO Q6 5 Days Qty: 20 0RF No Action atorvastatin 20 MG tablet 20 mg PO QHS Centrum Silver 1 EACH tablet 1 ea PO DAILY tamsulosin 0.4 MG capsule 0.4 mg PO DAILY 7 Days 0RF escitalopram oxalate 10 mg tablet 10 mg PO DAILY Patient Comments: TAKE 1 TABLET BY MOUTH EVERY DAY Primary Care Provider: Lidia Costello Referrals: Lidia Costello MD [Primary Care Provider] - 3-5 Days (regarding urine) Gunner Kang MD [Non-Staff] - 3-5 Days (after monitor is turned in) Disposition Disposition: Home, Self Care
--- NOTE | 2023-01-17 12:36 | RAD_ITS ---
STUDY: X-RAY CHEST REASON FOR EXAM: Male, 77 years old. Cough. Dizziness and weakness. TECHNIQUE: PA and lateral views of the chest. COMPARISON: None. FINDINGS: EKG electrodes are seen. The lungs are clear and expanded. There is no demonstrated pleural abnormality. Normal size heart. Normal mediastinum and rosalio. Normal visualized pulmonary arteries. There is atherosclerotic calcification of the aortic arch with tortuosity. There are diffuse degenerative changes of the visualized thoracic spine. Normal visualized ribs, clavicles, and shoulders. There is no demonstrated abnormality of the visualized soft tissue structures of the upper abdomen. RAD/Chest PA and Lateral IMPRESSION: No acute abnormality is seen. Electronically Signed: Kai Albert MD at 13:21 EDT ,
[2023-01-17 12:37] LABS: Absolute Lymphocyte Count 1.43 X10^3/uL (0.83-4.51); Absolute Neutrophil Count 5.5 X10^3/uL (2.0-7.7); Basophil# 0.06 X10^3/uL; Basophil% 0.7 % (0-1); Eosinophil# 0.45 X10^3/uL; Eosinophils% 5.4 % (0-5); Hematocrit 42.6 % (40-54); Hemoglobin 13.8 g/dL (13.0-16.5); Lymphocyte # 1.43 X10^3/ul (0.83-4.51); Lymphocyte % 17.3 % (19-41); Mean Corp Hgb Conc 32.4 g/dL (32-36); Mean Corpuscular Hgb 29.3 pg (27.0-32.0); Mean Corpuscular Volume 90.4 fL (80-94); Monocyte# 0.79 X10^3/uL; Monocyte% 9.6 % (0-10); NRBC Flagged by Analyzer 0 % (0-5); Neutrophil % 66.6 % (47-70); Platelet Count 236 K/mm3 (150-450); RBC Distribution Width CV 12.9 % (11.6-14.6); Red Blood Count 4.71 M/mm3 (4.6-6.2); White Blood Count 8.3 K/mm3 (4.4-11.0)
[2023-01-17 12:48] VITALS: RESP 18
[2023-01-17 13:01] LABS: Partial Thromboplast Time 28.9 Seconds (24.1-36.2); Prothrombin Time (Protime)PT. 13.2 SECONDS (11.7-14.9)
[2023-01-17 13:02] LABS: BNP,B-Type NATRIURETIC PEPTIDE 9.1 pg/mL (0-100)
[2023-01-17 13:03] LABS: ALB/GLOB Ratio 0.9 RATIO (0.9-2.4); AST(SGOT) 16 U/L (15-37); Alanine Aminotransfer ALT/SGPT 25 U/L (16-61); Albumin, Serum 3.3 g/dL (3.2-5.0); Alkaline Phosphatase 116 U/L (45-117); Anion Gap 3 (5-15); BUN 22 mg/dL (7-18); BUN/Creat Ratio 14.3 RATIO (10-20); Calcium,Total 9.4 mg/dL (8.5-10.1); Chloride 106 mmol/L (98-107); Creatinine, Serum 1.54 mg/dL (0.70-1.30); EST Glomerular Filtration Rate 47 mL/min (>60); Est Glom Filt Rate - Afr Amer 57 mL/min (>60); Estimated Creatinine Clearance 41.48 ml/min; Globulin 3.6 g/dL (2.2-4.2); Glucose 123 mg/dL (74-106); Potassium 4.1 mmol/L (3.5-5.1); Protein, Total 6.9 g/dL (6.4-8.2); Sodium Level 136 mmol/L (136-145); Troponin-I HS 5 pg/mL (3.0-78.0)
[2023-01-17 13:10] LABS: Lactic Acid 1.3 mmol/L (0.4-1.9)
[2023-01-17 13:44] LABS: Bacteria 0 SEEN /hpf (None Seen); Mucous, Urine 0 SEEN /hpf (<or=2+)
[2023-01-17 13:48] VITALS: RESP 18
[2023-01-17 13:55] LABS: Color, Urine Yellow (Yellow); Glucose, Dipstick Normal (Normal); Ketone-Dipstick Negative (Negative); Leukocyte Esterase-Dipstick 500 /ul (Negative); Nitrite-Dipstick Positive (Negative); Occult Blood-Urine 250 /ul (Negative); Protein-Dipstick 100 mg/dl (Negative); Urine Bilirubin Dipstick Negative (Negative); Urine Clarity Sl. Cloudy (Clear); Urine Urobilinogen Normal (Normal)
--- NOTE | 2023-01-17 13:57 | CM.ED ---
Social Work SW met with patient and patient's and introduced herself and role as [facility] [employer]. Patient lying on hospital bed and agreeable to speak with SW with his present. SW inquired about LW and HCPOA. Patient reports having both completed and his HCPOA is his Stacey, and his second agent is his daughter Sammie. SW encouraged patient to bring in a copy to [facility] to be added to his chart, patient reports understanding. Shyann Ferreira MSW, LESVIA
[2023-01-17 14:12] LABS: Red Blood Cells-Urine 0-5 SEEN /hpf (0-5); White Blood Cells 25-50 SEEN /hpf (0-5)
[2023-01-17 14:14] LABS: Squamous Epithelial Cells - UA 0-5 SEEN /hpf (0-5)
[2023-01-17 14:48] VITALS: BP 143/91; PULSE 67; RESP 18; O2SAT 94
== END 2023-01-17 16:45 | disposition home or self-care (01) ==
PROVIDERS: Emergency Provider Emergency Medicine; PCP Internal Medicine; Visit Provider Emergency Medicine
DX: R00.2 Palpitations (principal); E78.00 Pure hypercholesterolemia, unspecified; N39.0 Urinary tract infection, site not specified; N40.0 Benign prostatic hyperplasia without lower urinary tract symptoms; F32.A Depression, unspecified; Z79.899 Other long term (current) drug therapy; Z96.0 Presence of urogenital implants
CPT/HCPCS: 71046; 80053; 81001; 83605; 83880; 84484; 85025; 85610; 85730; 87040; 87086; 87088; 87186; 93005; 93225; 93226; 96360; 96361; 99284; J7040; A4216

== ENCOUNTER → 2023-01-17 | Outpatient (CLI) | payer MEDICARE, SELFPAY | END | disposition home or self-care (01) | LOC: CVS 16:03 | PROVIDERS: PCP Internal Medicine; Referring Provider Emergency Medicine; Visit Provider Emergency Medicine | DX: R00.9 Unspecified abnormalities of heart beat (principal) | CPT/HCPCS: 93225; 93226 ==

== ENCOUNTER 2023-01-18 14:14 | Emergency (ER) | payer MEDICARE, SELFPAY ==
[2023-01-18 14:15] VITALS: BP 120/81; PULSE 111; RESP 18; TEMP 36.1; O2SAT 93; BMI 26.9
--- NOTE | 2023-01-18 15:09 | EDS_ITS ---
HPI History of Present Illness Chief Complaint: Complaint Informant: patient Narrative Narrative: Patient is a 77-year-old male with history of kidney stones, recent lithotripsy procedure at [facility] with Dr. Nichols and urinary retention. He had his Gregorio catheter removed today at the office of Carlos Garcia. He has not been able to urinate since. This happens at 830 this morning. The Gregorio had been in for 10 weeks. He came in for inability urinate and increased discomfort associate with this. Patient also notes that he does have a Holter monitor on because of the episodes of dizziness has been having. No other complaints or concerns at this time. Patient states he is currently on Keflex for UTI. [facility] Medical History Depression High cholesterol Kidney stones Ureteral stent present Home Medications atorvastatin 20 mg tablet 20 mg PO QHS 01/30/16 [History Last Taken Unknown] uadlctxz-obu-rlyoa acid 0.4 mg-lycopene 300 mcg-lutein 250 mcg tablet (Centrum Silver) 1 ea PO DAILY 01/30/16 [History Last Taken Unknown] tamsulosin 0.4 mg capsule 0.4 mg PO DAILY 7 days 09/23/17 [Rx Last Taken Unknown] escitalopram oxalate 10 mg tablet 10 mg PO DAILY 11/05/22 [History Last Taken Unknown] cephalexin 500 mg capsule 500 mg PO Q6 5 days #20 CAPSULES 01/17/23 [Rx Last Taken Unknown] Allergy/AdvReac Type Severity Reaction Status Date / Time bupropion HCl Allergy Rash Verified 01/18/23 14:16 [From Wellbutrin] Surgical History (Updated 01/17/23 @ 11:53 by Juanita Harris) Hx of umbilical hernia repair Previous back surgery Social History Smoking Status: Never smoker ROS ROS ED ROS Narrative Positive dizziness?ongoing Constitutional Constitutional ED: Denies chills or fever(s) Gastrointestinal Gastrointestinal: Reports abdominal pain Genitourinary Genitourinary ED: Reports other Details: Inability to urinate Neurologic Neurologic: Denies weakness Psychiatric Psychiatric: Denies anxiety EXAM Physical Exam Const Vital Signs: 01/18/23 14:15 Temperature 97 F L Temperature Source Temporal Pulse Rate 111 H Respiratory Rate 18 Blood Pressure 120/81 H Blood Pressure Mean 94 Pulse Ox 93 Oxygen Delivery Method Room Air Positive well nourished and well developed General Appearance ED: well developed and NAD HEENT Reports moist mucous membranes Neck supple Resp normal respiratory effort and clear to auscultation bilaterally Cardio regular rate, regular rhythm and no murmurs GI non-tender and non-distended Narrative: Gregorio catheter in place, 600 cc of urine draining out Back/Spine no CVA tenderness Neuro oriented x3 Sensorium / Orientation: alert Psych mental status grossly normal Skin Lesions: no lesions Rashes: no rashes MDM MDM MDM Narrative Medical decision making narrative: Patient evaluated for acute urinary retention. He had a Gregorio catheter removed at 830 this morning. Not been able to urinate since. Gregorio catheter placed by nursing staff prior to my evaluation of the patient. Patient currently has no symptoms and states he feels much better. He is 600 cc of urine in the bag. It is clear yellow urine. As he is already on antibiotics for UTI do not think a urinalysis or culture is indicated at this time. He has no other complaints or concerns. Its only been a couple hours and I do not think he is high risk for having an VICKEY and I do not think we need to check a BMP at this time. I did speak to urology [facility], Adolfo Garcia, who encourages the patient to follow-up with his urologist at [facility]. He states that patient already has a appointment. He also asked me to remind the patient that if this were to happen again he could just call the urology office instead of going to the emergency room. Discharge Plan Triage Chief Complaint: Complaint ED Provider: Yessica Silva Dx/Rx/DC Orders Clinical Impression: Acute on chronic urinary retention Instructions: ED Gregorio Catheter, Care, ED Urinary Retention, Male Prescriptions: No Action atorvastatin 20 MG tablet 20 mg PO QHS Centrum Silver 1 EACH tablet 1 ea PO DAILY tamsulosin 0.4 MG capsule 0.4 mg PO DAILY 7 Days 0RF escitalopram oxalate 10 mg tablet 10 mg PO DAILY Patient Comments: TAKE 1 TABLET BY MOUTH EVERY DAY cephalexin [cephalexin] 500 mg capsule 500 mg PO Q6 5 Days Qty: 20 0RF Primary Care Provider: Lidia Costello Referrals: Lidia Costello MD [Primary Care Provider] - Activity Restrictions/Additional Instructions: Please follow-up with your urologist. Continued your antibiotics as prescribed. Disposition Disposition: Home, Self Care
== END 2023-01-18 15:42 | disposition home or self-care (01) ==
LOC: ED 15:21
PROVIDERS: Emergency Provider Emergency Medicine; PCP Internal Medicine; Visit Provider Emergency Medicine
DX: R33.9 Retention of urine, unspecified (principal); E78.00 Pure hypercholesterolemia, unspecified; Z79.899 Other long term (current) drug therapy; F32.A Depression, unspecified
CPT/HCPCS: 51702; 99283

== ENCOUNTER 2025-02-21 16:02 | Emergency (ER) | payer MEDICARE, SELFPAY ==
[2025-02-21 16:03] VITALS: BP 177/106; PULSE 71; RESP 20; TEMP 36.6; O2SAT 95
[2025-02-21 16:10] VITALS: BMI 29.0
--- NOTE | 2025-02-21 16:14 | CT_ITS ---
PROCEDURE: SPINE CERVICAL WITHOUT CONTRAS 02/21/2025 REASON FOR EXAM: INJURY TECHNIQUE: SPINE CERVICAL WITHOUT CONTRAS Coronal and Sagittal reconstruction series were provided. One or more dose reduction techniques were used (e.g., Automated exposure control, adjustment of the mA and/or kV according to patient size, use of iterative reconstruction technique. RADIATION DOSE SUMMARY: CTDlvol: 23 mGy DLP: 520 mGycm FINDINGS: No evidence of acute fracture or dislocation. Vertebral body heights are maintained. Ziyc-kb-xolmceql degenerative changes of the visualized spine. Azygous lobe, an anatomic variant. Dilated aortic arch. CT/Spine Cervical without Contras IMPRESSION: No acute osseous abnormality. Spondylosis. Azygous lobe, an anatomic variant. Dilated aortic arch. Reading Location: [id number]
--- NOTE | 2025-02-21 16:14 | CT_ITS ---
PROCEDURE: BRAIN/HEAD WITHOUT CONTRAST 02/21/2025 REASON FOR EXAM: INJURY TECHNIQUE: BRAIN/HEAD WITHOUT CONTRAST Coronal and Sagittal reconstruction series were provided. One or more dose reduction techniques were used (e.g., Automated exposure control, adjustment of the mA and/or kV according to patient size, use of iterative reconstruction technique. RADIATION DOSE SUMMARY: CTDlvol: 44 mGy DLP: 863 mGycm FINDINGS: Mild global parenchymal atrophy. Chronic microvascular ischemia. No evidence of acute hemorrhage or infarction. No extra-axial blood or fluid collections. The paranasal sinuses and mastoid air cells are clear. The calvarial vault and skull base are intact. CT/Brain/Head without Contrast IMPRESSION: No acute intracranial abnormality. Reading Location: [id number]
--- NOTE | 2025-02-21 16:18 | EDS_ITS ---
HPI HPI - Fall History of Present Illness Chief Complaint: Fall Informant: patient and spouse/S.O. Narrative Narrative: Brought by EMS from home fall with confusion. Patient recalls sitting in the lounge chair watching workers put solar panels up. was with him. They were not outside that long. Patient does not recall things afterwards. However spouse states they were walking, use stepping over a trench while she was walking around. She came around he had fallen forward against a trench. He does not recall this he does not recall going the ambulance. They reported confusion. There is no seizure activity. He currently feels normal with mild headache. He does not take any blood thinners. He reports couple months ago had a fall down 13 steps on and off neck pain since then no arm weakness. He did not get seen at the facility. He ambulates without any assistance. No nausea or vomiting. He woke up this morning his normal self, had no issues. PFSH [facility] Medical History High cholesterol Depression Ureteral stent present Kidney stones Home Medications ?Medication ?Instructions ?Recorded ?Last Taken ?Type atorvastatin 20 mg tablet 20 mg PO QHS 01/30/16 Unknow n History nhipybyt-thj-nkdcb acid 0.4 1 ea PO DAILY 01/30/16 Unk nown History mg-lycopene 300 mcg-lutein 250 mcg tablet (Centrum Silver) tamsulosin 0.4 mg capsule 0.4 mg PO DAILY 7 days 09/23 Unknown Rx escitalopram oxalate 10 mg tablet 10 mg PO DAILY 11/05 Unknown History cephalexin 500 mg capsule 500 mg PO Q6 5 days #20 CAPS ULES 01/17/23 Unknown Rx Allergy/AdvReac Type Severity Reaction Status Date / Time bupropion HCl (From Allergy Rash Verified 02/21/25 16:13 Wellbutrin) Surgical History Hx of umbilical hernia repair Previous back surgery Social History Smoking Status: Never smoker ROS ROS ED Constitutional Constitutional ED: Denies fever(s) Cardiovascular Cardiovascular: Denies chest pain Respiratory/Chest Respiratory/Chest: Denies cough Gastrointestinal Gastrointestinal: Denies diarrhea or vomiting Musculoskeletal Musculoskeletal: Denies none Integumentary Denies rash or wounds Neurologic Neurologic: Reports headache(s); Denies weakness EXAM Physical Exam Const Vital Signs: 02/21/25 16:03 02/21/25 17:02 02/21/25 17:48 Temperature 98 F Temperature Source Oral Pulse Rate 71 67 Respiratory Rate 20 H 16 Respiratory Effort Normal Respiratory Depth Normal Respiratory Pattern Normal Blood Pressure 177/106 H 170/99 H Blood Pressure Mean 129 122 Pulse Ox 95 99 Oxygen Delivery Method Room Air Room Air Room Air 02/21/25 18:00 02/21/25 18:22 Temperature 98.8 F Temperature Source Pulse Rate 71 71 Respiratory Rate 18 18 Respiratory Effort Respiratory Depth Respiratory Pattern Blood Pressure 171/95 H 171/95 H Blood Pressure Mean 120 120 Pulse Ox 96 96 Oxygen Delivery Method Room Air Positive well nourished and well developed Constitutional Narrative: GCS 15. General Appearance ED: well developed and NAD HEENT Reports moist mucous membranes HEENT Narrative: Superficial abrasion to the forehead read likely from pressure there is no breaking of the skin. normocephalic Eyes General Eye ED: Yes normal appearance of both eyes Neck full ROM Neck Narrative: No step-offs. Chest Wall inspection of chest normal and palpation of chest normal Chest: Negative for tenderness Resp normal respiratory effort and normal air movement Effort and Inspection: symmetric chest movement; Negative for respiratory distress Cardio regular rate, regular rhythm and no murmurs Peripheral Pulses: pulses 2+ throughout GI normal to inspection, nondistended, normoactive bowel sounds and non-tender Palpation: Negative for guarding or rebound tenderness present Extremity normal to inspection Extremity Narrative: Full range of motion all 4 extremities. Pulses intact x 4. General Extremety ED: Negative for edema or tenderness General Extremity: Negative for edema Neuro oriented x3, CN's II-XII intact bilaterally and no sensory deficits noted Sensorium / Orientation: awake and alert Skin no rashes or lesions noted and no wounds MDM MDM MDM Narrative Medical decision making narrative: Interventions / MDM: Differential diagnosis: Head injury with loss of consciousness, amnesia, concussion, contusion Diagnosis considered but do not suspect: No seizure activity there was reported initial confusion likely amnesia and not postictal. My EKG interpretation: N/A Imaging independently reviewed and interpreted by myself: CT head/cervical spine: No fracture, no hemorrhage. External documents reviewed: N/A Test considered but not ordered:N/A ED course: Patient currently alert orient x 3 GCS 15 no focal deficits. He had a fall with amnesia. Currently back to baseline. Will obtain trauma scans head and neck. Will monitor. 1725: Image studies negative for any acute process. Patient remembers more at this time he states he is walking over the ditch he made over the transfer ended up on the grass. That he remembers being in the ambulance. Slight headache. Concussion discussed along with precautions. Tylenol ordered. Will ambulate the patient for stability prior to disposition. Patient able ambulate no difficulties. Reported mild pain in his left thigh. No deformities, discussed contusion. He will monitor symptoms. Outpatient follow-up. All questions were answered. Re-evaluation: stable Disposition discussed with patient/family/significant other: Patient and spouse Case discussed with consulting clinician: N/A This note was generated with [employer] software. It may contain incorrect words, spelling, and punctuation that were not noted in checking the note before signing. Radiography Diagnostic Testing: Clinical Impression(s) from Imaging Studies Brain CT 02/21/25 16:14 IMPRESSION: No acute intracranial abnormality. Reading Location: [facility] Cervical Spine CT 02/21/25 16:14 IMPRESSION: No acute osseous abnormality. Spondylosis. Azygous lobe, an anatomic variant. Dilated aortic arch. Reading Location: [facility] Discharge Plan Triage Chief Complaint: Fall ED Provider: Jerson Blackman Dx/Rx/DC Orders Clinical Impression: Concussion, CHI (closed head injury), Fall Instructions: ED Concussion Prescriptions: No Action atorvastatin 20 MG tablet 20 mg PO QHS Centrum Silver 1 EACH tablet 1 ea PO DAILY tamsulosin 0.4 MG capsule 0.4 mg PO DAILY 7 Days 0RF escitalopram oxalate 10 mg tablet 10 mg PO DAILY Patient Comments: TAKE 1 TABLET BY MOUTH EVERY DAY cephalexin [cephalexin] 500 mg capsule 500 mg PO Q6 5 Days Qty: 20 0RF Primary Care Provider: Lidia Costello Referrals: Lidia Costello MD [Primary Care Provider] - 1 Week Activity Restrictions/Additional Instructions: CT head and cervical spine negative for fracture or bleeds. Use Tylenol up to 1 g every 6 hours as needed for headache symptoms. Follow-up with your doctor. Print Language: Tamazight Disposition Disposition: Home, Self Care Discharge Date/Time: 02/21/25 18:26
[2025-02-21 17:02] VITALS: BP 170/99; PULSE 67; RESP 16; O2SAT 99
[2025-02-21 18:00] VITALS: BP 171/95; PULSE 71; RESP 18; O2SAT 96
[2025-02-21 18:22] VITALS: BP 171/95; PULSE 71; RESP 18; TEMP 37.1; O2SAT 96
== END 2025-02-21 18:26 | disposition home or self-care (01) ==
PROVIDERS: Emergency Provider Emergency Medicine; PCP Internal Medicine; Referring Provider Emergency Medicine; Visit Provider Emergency Medicine
DX: S06.0X9A Concussion with loss of consciousness of unspecified duration, initial encounter (principal); S00.81XA Abrasion of other part of head, initial encounter; W01.198A Fall on same level from slipping, tripping and stumbling with subsequent striking against other object, initial encounter; Y93.01 Activity, walking, marching and hiking
CPT/HCPCS: 70450; 72125; 99284